=== PATIENT | female | born 1985 | race Caucasian/White ===

== ENCOUNTER 2017-01-06 16:41 | Observation (INO) | payer MEDICARE, MEDICAID ==
[2017-01-06] MEDS ORDERED: Ketorolac 60 MG/2 ML SDV IM ONE (17:19)
--- NOTE | 2017-01-06 17:52 | EDM.PDOC ---
ED HPI GENERAL MEDICAL PROBLEM - General Chief Complaint: Lower Extremity Injury/Pain Stated Complaint: RT ANKLE Time Seen by Provider: 01/06/17 16:57 Source of Information: Reports: Patient History Limitations: Reports: No Limitations - History of Present Illness INITIAL COMMENTS - FREE TEXT/NARRATIVE: 31 -year-old white female came to the ed and because of right ankle pain, swelling and pain. Pt stated, she has pain for one week and head a "pup" today, has pain when she applies weight on her right leg. Denies trauma or any other acute medical issues. Onset Date: 12/30/16 Onset Time: 18:00 Duration: Getting Worse Location: Reports: Lower Extremity, Right Quality: Reports: Ache, Burning, Dull, Pressure Severity: Mild Improves with: Reports: Cold Therapy, Immobilization Worsens with: Reports: Movement Associated Symptoms: Reports: No Other Symptoms Right Ankle Pain Score (Numeric/FACES): 7 - Related Data Allergies Allergy/AdvReac Type Severity Reaction Status Date / Time latex Allergy Unknown unknown Verified 01/06/17 16:52 tramadol Allergy Unknown unknown Verified 01/06/17 16:52 sumatriptan [From Imitrex] Allergy Hives Verified 01/06/17 21:10 Home Meds: Home Meds Lactulose 20 gram PO TID 10/21/15 [History] Multivit-Min/Iron Fum/Folic AC [Jxcds-Genehku-[place] Tablet] 1 tab PO DAILY [History] Multivitamin with Minerals [Hair, Skin and Nails] 1 tab PO BIDMEALS 10/21/15 [ History] Citalopram Hydrobromide [Celexa] 40 mg PO DAILY 01/06/17 [History] Indomethacin 50 mg PO TID PRN #15 capsule 01/07/17 [Rx] Potassium Chloride [Klor-Con M20] 20 meq PO TID #30 tab.er 01/07/17 [Rx] Past Medical History HEENT History: Reports: Allergic Rhinitis Cardiovascular History: Reports: Other (See Below) Other Cardiovascular History: TACHY ON ASSESSMENT AT ED AT 110 Gastrointestinal History: Reports: Cirrhosis, Jaundice Other Gastrointestinal History: Alcoholic liver disease. Low potassium. 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: Psychiatric History: Reports: Addiction, Depression, Eating Disorders, Other ( See Below) Other Psychiatric History: Alcohol abuse Dermatologic History: Reports: Eczema - Infectious Disease History Infectious Disease History: Reports: Chicken Pox - Past Surgical History Female Surgical History: Reports: Section Social & Family History - Family History Family Medical History: Noncontributory - Tobacco Use Smoking Status *Q: Never Smoker Years of Tobacco use: 16 Packs/Tins Daily: 0.2 Used Tobacco, but Quit: Yes Month Tobacco Last Used: DEC, 2015 Second Hand Smoke Exposure: No - Caffeine Use Caffeine Use: Reports: Coffee, Tea - Alcohol Use Days Per Week of Alcohol Use: 7 Number of Drinks Per Day: 8 Total Drinks Per Week: 56 - Recreational Drug Use Recreational Drug Use: No - Living Situation & Occupation Living situation: Reports: Other Review of Systems - Review of Systems Review Of Systems: See Below Constitutional: Reports: No Symptoms Eyes: Reports: No Symptoms Ears: Reports: No Symptoms Nose: Reports: No Symptoms Mouth/Throat: Reports: No Symptoms Respiratory: Reports: No Symptoms Cardiovascular: Reports: No Symptoms GI/Abdominal: Reports: No Symptoms Genitourinary: Reports: No Symptoms Musculoskeletal: Reports: Joint Swelling (r ankle) Skin: Reports: Rash (r ankle) Neurological: Reports: No Symptoms Psychiatric: Reports: No Symptoms ED EXAM, GENERAL - Physical Exam Exam: See Below Exam Limited By: No Limitations General Appearance: Alert, WD/WN, Mild Distress Eye Exam: Bilateral Eye: Normal Inspection Ears: Normal External Exam Ear Exam: Bilateral Ear: Auricle Normal Nose: Normal Inspection Throat/Mouth: Normal Inspection Head: Atraumatic, Normocephalic Neck: Normal Inspection, Supple, Non-Tender Respiratory/Chest: No Respiratory Distress, Lungs Clear Cardiovascular: Normal Peripheral Pulses, Regular Rate, Rhythm Peripheral Pulses: 1+: Femoral (L), Femoral (R) GI/Abdominal: Normal Bowel Sounds, Soft, Non-Tender (Female) Exam: Deferred Rectal (Female) Exam: Deferred Back Exam: Normal Inspection, Full Range of Motion Extremities: Joint Swelling (r ankle), Increased Warmth (r med ankle), Redness ( r ankle, medial aspect) Neurological: Alert, Oriented, CN II-XII Intact Psychiatric: Normal Affect, Normal Mood Skin Exam: Warm, Dry, Normal Color, Erythema (r ankle medial aspect) Lymphatic: No Adenopathy EKG INTERPRETATION EKG Date: 01/06/17 Time: 18:45 Rhythm: NSR Rate (beats/min): 83 [place]: normal P-wave: present QRS: normal ST-T: normal QT: normal Comparison: NA - no prior EKG Course - Vital Signs Text/Narrative:: 31 -year-old white female came to the ed and because of right ankle pain, swelling and pain. Pt stated, she has pain for one week and head a "pup" today, has pain when she applies weight on her right leg. Denies trauma or any other acute medical issues. PE: WNWD w F NAD, r ankle warm and swollen with limited ROM. Labs: Potasium 2.2 Lactic acid and WBC nl Mg level is pending Impression: Hypokalemia, Cellulitis r med ankle. Hypomagnesia Tx: Rocephin, Toradol, K Dur liquid, vicodin Plan: Admit to M/S tele Last Recorded V/S: Last Vital Signs Temp 36.6 C 01/07/17 08:00 Pulse 70 01/07/17 08:00 Resp 20 01/07/17 08:00 BP 87/53 L 01/07/17 08:00 Pulse Ox 97 01/07/17 08:00 - Orders/Labs/Meds Orders: Active Orders 24 hr Category Date Time Status Ankle Min 3V Rt [CR] Stat Exams 01/06/17 17:17 Taken CULTURE BLOOD [BC] Urgent Lab 01/06/17 18:00 Received CULTURE BLOOD [BC] Urgent Lab 01/06/17 18:00 Received Blood Culture x2 Reflex Set [OM.PC] Urgent Oth 01/06/17 17:44 Ordered Ice Bag [Ice Therapy] [OM.PC] Routine Oth 01/06/17 17:19 Ordered EKG 12 Lead [EK] Routine Ther 01/06/17 18:36 Ordered Labs: Laboratory Tests 01/06/17 01/06/17 01/06/17 Range/Units 17:55 17:55 17:55 WBC 7.3 (4.5-12.0) X10-3/uL RBC 4.60 (3.23-5.20) x10(6)uL Hgb 12.8 (11.5-15.5) g/dL Hct 38.5 (30.0-51.3) % MCV 83.8 (80-96) fL MCH 27.8 (27.7-33.6) pg MCHC 33.1 (32.2-35.4) g/dL RDW 14.2 (11.5-15.5) % Plt Count 157 (125-369) X10(3)uL MPV 9.3 (7.4-10.4) fL Neut % (Auto) 59.2 (46-82) % Lymph % (Auto) 33.3 (13-37) % [place] % (Auto) 5.6 (4-12) % Eos % (Auto) 1 (1.0-5.0) % Baso % (Auto) 1 (0-2) % Neut # (Auto) 4.3 (1.6-8.3) # Lymph # (Auto) 2.4 (0.6-5.0) # [place] # (Auto) 0.4 (0.0-1.3) # Eos # (Auto) 0.1 (0.0-0.8) # Baso # (Auto) 0.1 (0.0-0.2) # Sodium 131 L (135-145) mmol/L Potassium 2.2 L* (3.5-5.3) mmol/L Chloride 90 L D (100-110) mmol/L Carbon Dioxide 30 H (23-29) mmol/L BUN 15 (5-20) mg/dL Creatinine 0.6 (0.6-1.3) mg/dL Est Cr Clr Drug Dosing 108.43 mL/min Estimated GFR (MDRD) > 60 (>60) BUN/Creatinine Ratio 25.0 H (9-20) Glucose 102 (80-116) mg/dL Lactic Acid 1.2 (0.5-2.2) mmol/L Calcium 9.4 (8.6-10.2) mg/dL Magnesium (1.8-2.5) mg/dL 01/06/17 Range/Units 17:55 WBC (4.5-12.0) X10-3/uL RBC (3.23-5.20) x10(6)uL Hgb (11.5-15.5) g/dL Hct (30.0-51.3) % MCV (80-96) fL MCH (27.7-33.6) pg MCHC (32.2-35.4) g/dL RDW (11.5-15.5) % Plt Count (125-369) X10(3)uL MPV (7.4-10.4) fL Neut % (Auto) (46-82) % Lymph % (Auto) (13-37) % [place] % (Auto) (4-12) % Eos % (Auto) (1.0-5.0) % Baso % (Auto) (0-2) % Neut # (Auto) (1.6-8.3) # Lymph # (Auto) (0.6-5.0) # [place] # (Auto) (0.0-1.3) # Eos # (Auto) (0.0-0.8) # Baso # (Auto) (0.0-0.2) # Sodium (135-145) mmol/L Potassium (3.5-5.3) mmol/L Chloride (100-110) mmol/L Carbon Dioxide (23-29) mmol/L BUN (5-20) mg/dL Creatinine (0.6-1.3) mg/dL Est Cr Clr Drug Dosing mL/min Estimated GFR (MDRD) (>60) BUN/Creatinine Ratio (9-20) Glucose (80-116) mg/dL Lactic Acid (0.5-2.2) mmol/L Calcium (8.6-10.2) mg/dL Magnesium 1.6 L (1.8-2.5) mg/dL Meds: Medications Discontinued Medications Generic Name Dose Route Start Last Admin Trade Name Spq PRN Reason Stop Dose Admin Hydrocodone Bitart/Acetaminophen 1 tab 01/06/17 20:02 01/06/17 21:19 [place] 325-5 Mg PO 01/06/17 20:03 1 tab ONETIME STA Administration Ceftriaxone Sodium 1,000 mg/ 50 mls @ 100 mls/hr 01/06/17 18:54 01/06/17 20: 19 Sodium Chloride IV 01/06/17 19:23 100 mls/hr ONETIME ONE Administration Sodium Chloride 250 mls @ 100 mls/hr 01/06/17 20:30 01/07/17 08:16 Normal Saline IV 100 mls/hr ASDIRECTED KENDRICK Administration Magnesium Sulfate 1 gm/ 52 mls @ 100 mls/hr 01/07/17 06:49 01/07/17 08:19 Dextrose/Water IV 01/07/17 07:20 100 mls/hr ONETIME ONE Administration Ketorolac Tromethamine 60 mg 01/06/17 17:19 01/06/17 17:26 Toradol IM 01/06/17 17:20 60 mg ONETIME ONE Administration Ketorolac Tromethamine 30 mg 01/07/17 08:47 01/07/17 09:28 Toradol IVPUSH 01/07/17 08:48 30 mg ONETIME ONE Administration Ondansetron HCl 4 mg 01/06/17 18:42 Zofran IV Q4H PRN Nausea/Vomiting Ondansetron HCl 4 mg 01/07/17 07:32 Zofran IVPUSH Q4H PRN Nausea/Vomiting Pneumococcal Polyvalent Vaccine 0.5 ml 01/06/17 20:49 01/06/17 22:42 Pneumovax 23 IM 01/06/17 20:50 0.5 ml .ONCE ONE Administration Potassium Chloride 40 meq 01/06/17 18:35 01/06/17 18:46 Potassium Chloride Solution PO 01/06/17 18:36 40 meq ONETIME ONE Administration Potassium Chloride 40 meq 01/06/17 23:31 01/06/17 23:38 Potassium Chloride Solution PO 01/06/17 23:32 40 meq ONETIME STA Administration Potassium Chloride 40 meq 01/07/17 03:30 01/07/17 04:41 Potassium Chloride Solution PO 01/07/17 03:31 40 meq ONETIME ONE Administration Potassium Chloride 40 meq 01/07/17 07:03 01/07/17 08:22 Potassium Chloride Solution PO 01/07/17 07:04 40 meq ONETIME ONE Administration Sodium Chloride 10 ml 01/06/17 18:42 01/06/17 20:19 Saline Flush FLUSH 10 ml ASDIRECTED PRN Administration Keep Vein Open Departure - Departure Time of Disposition: 21:00 Disposition: Refer to Observation Condition: fair Clinical Impression: Hypokalemia - Discharge Information - My Orders Last 24 Hours: My Active Orders 01/06/17 17:17 Ankle Min 3V Rt [CR] Stat 01/06/17 17:19 Ice Bag [Ice Therapy] [OM.PC] Routine 01/06/17 17:44 Blood Culture x2 Reflex Set [OM.PC] Urgent 01/06/17 18:00 CULTURE BLOOD [BC] Urgent CULTURE BLOOD [BC] Urgent 01/06/17 18:36 EKG 12 Lead [EK] Routine - Assessment/Plan Last 24 Hours: My Active Orders 01/06/17 17:17 Ankle Min 3V Rt [CR] Stat 01/06/17 17:19 Ice Bag [Ice Therapy] [OM.PC] Routine 01/06/17 17:44 Blood Culture x2 Reflex Set [OM.PC] Urgent 01/06/17 18:00 CULTURE BLOOD [BC] Urgent CULTURE BLOOD [BC] Urgent 01/06/17 18:36 EKG 12 Lead [EK] Routine
[2017-01-06] MEDS ORDERED: Potassium Chloride 10% 20 MEQ/15 ML Soln 15 ML UD Cup PO ONE (18:35)
[2017-01-06] MEDS ORDERED: Sodium Chloride 0.9% 10 ML Syringe FLUSH PRN (18:42)
[2017-01-06] MEDS ORDERED: Ondansetron 4 MG/2 ML SDV IV PRN (18:42)
[2017-01-06] MEDS ORDERED: cefTRIAXone 1,000 MG in Sodium Chloride 0.9% 50 ML IV ONE (18:54)
[2017-01-06] MEDS ORDERED: Acetaminophen/HYDROcodone 325-5 MG Tab PO STA (20:02)
[2017-01-06] MEDS ORDERED: Pneumococcal Polyvalent-23 Vaccine 0.5 ML SDV IM ONE (20:49)
[2017-01-06] MEDS: Sodium Chloride 0.9% 250 ML IV SCH (21:08)
[2017-01-06] MEDS ORDERED: Potassium Chloride 10% 20 MEQ/15 ML Soln 15 ML UD Cup PO STA (23:31)
[2017-01-07] MEDS ORDERED: Potassium Chloride 10% 20 MEQ/15 ML Soln 15 ML UD Cup PO ONE ×2 (03:30→07:03)
[2017-01-07] MEDS ORDERED: Ondansetron 4 MG/2 ML SDV IVPUSH PRN (07:32)
[2017-01-07 08:04] VITALS: BP 87/53
[2017-01-07] MEDS: Sodium Chloride 0.9% 250 ML IV SCH (08:16)
[2017-01-07] MEDS ORDERED: Ketorolac 30 MG/ML SDV IVPUSH ONE (08:47)
--- NOTE | 2017-01-07 09:01 | PCM.HP ---
H&P History of Present Illness - General Date of Service: 01/07/17 Admit Problem/Dx: Admission Diagnosis/Problem Admission Diagnosis/Problem Hypokalemia Source of Information: Patient History Limitations: Reports: No Limitations - History of Present Illness Initial Comments - Free Text/Narative: 31-year-old was brought in because of ankle pain right side. Sudden onset popping and swelling,minimal trauma. No fever worse with weight bearing. Upon admission appetite was found to have K of 2.2 .Hypokalemia apparently has been a chronic problem for the last year. She has also a history of alcohol abuse but that's been in remission with no alcohol use in the last 6 months. She is admitted for IV and oral potassium replacement and pain control of the right ankle. This morning she would like to go home. Right Ankle Pain Score (Numeric/FACES): 7 - Related Data Allergies/Adverse Reactions: Allergies Allergy/AdvReac Type Severity Reaction Status Date / Time latex Allergy Unknown unknown Verified 01/06/17 16:52 tramadol Allergy Unknown unknown Verified 01/06/17 16:52 sumatriptan [From Imitrex] Allergy Hives Verified 01/06/17 21:10 Home Medications: Home Meds Lactulose 20 gram PO TID 10/21/15 [History] Multivit-Min/Iron Fum/Folic AC [Jsnmp-Oigjyqq-Rrpjfszf Tablet] 1 tab PO DAILY [History] Multivitamin with Minerals [Hair, Skin and Nails] 1 tab PO BIDMEALS 10/21/15 [ History] Citalopram Hydrobromide [Celexa] 40 mg PO DAILY 01/06/17 [History] Past Medical History HEENT History: Reports: Allergic Rhinitis Cardiovascular History: Reports: Other (See Below) Other Cardiovascular History: TACHY ON ASSESSMENT AT ED AT 110 Respiratory History: Reports: None Gastrointestinal History: Reports: Cirrhosis, Jaundice Other Gastrointestinal History: Alcoholic liver disease. Low potassium. 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: Neurological History: Reports: Migraines, Seizure Psychiatric History: Reports: Addiction, Depression, Eating Disorders, Other ( See Below) Other Psychiatric History: Alcohol abuse Endocrine/Metabolic History: Reports: None Hematologic History: Reports: Anemia, B12 Deficiency Immunologic History: Reports: None Oncologic (Cancer) History: Reports: None Dermatologic History: Reports: Eczema - Infectious Disease History Infectious Disease History: Reports: Chicken Pox - Past Surgical History Female Surgical History: Reports: Section Social & Family History - Family History Family Medical History: Noncontributory - Tobacco Use Smoking Status *Q: Never Smoker Years of Tobacco use: 16 Packs/Tins Daily: 0.2 Used Tobacco, but Quit: Yes Month Tobacco Last Used: DEC, 2015 Tobacco Use Comment: stopped smoking 2 weeks ago Second Hand Smoke Exposure: No - Caffeine Use Caffeine Use: Reports: Coffee, Tea - Alcohol Use Days Per Week of Alcohol Use: 7 Number of Drinks Per Day: 8 Total Drinks Per Week: 56 - Recreational Drug Use Recreational Drug Use: No - Living Situation & Occupation Living situation: Reports: Other H&P Review of Systems - Review of Systems: Review Of Systems: ROS reveals no pertinent complaints other than HPI. Exam - Exam Exam: See Below - Vital Signs Vital Signs: Last Vital Signs Temp 97.9 F 01/07/17 08:00 Pulse 70 01/07/17 08:00 Resp 20 01/07/17 08:00 BP 87/53 L 01/07/17 08:00 Pulse Ox 97 01/07/17 08:00 Weight: 52.662 kg - Exam General: Alert, Oriented, 4 HEENT: PERRLA, Hearing Intact, Mucosa Moist & [place], Nares Patent, Normal Nasal Septum, Posterior Pharynx Clear, Conjunctiva Clear, EOMI, EACs Clear, TMs Clear Neck: Supple, Trachea Midline, 2 Lungs: Clear to Auscultation, Normal Respiratory Effort Cardiovascular: Regular Rate, Regular Rhythm Abdomen: Normal Bowel Sounds, Soft (Female) Exam: Deferred Rectal (Female) Exam: Deferred Back Exam: Normal Inspection, Full Range of Motion, NT Extremities: Normal Pulses, Increased Warmth, Other (rt ankle tender,decreased ROM). No: Normal Inspection, Clubbing Skin: Warm, Dry, Intact Neurological: Cranial Nerves Intact, Reflexes Equal Bilateral Neuro Extensive - Mental Status: Alert, Oriented x3, Normal Mood/Affect, Normal Cognition Neuro Extensive - Motor, Sensory, Reflexes: CN II-XII Intact, Normal Gait, Normal Reflexes Psychiatric: Alert, Normal Affect, Normal Mood - Patient Data Lab Results last 24 hrs: Laboratory Results - last 24 hr 01/06/17 01/07/17 Range/Units 22:40 06:30 Sodium 133 L 141 (135-145) mmol/L Potassium 2.4 L* 2.9 L (3.5-5.3) mmol/L Chloride 94 L 99 L D (100-110) mmol/L Carbon Dioxide 34 H 35 H (23-29) mmol/L BUN 15 20 (5-20) mg/dL Creatinine 0.7 0.6 (0.6-1.3) mg/dL Est Cr Clr Drug Dosing 97.21 113.41 mL/min Estimated GFR (MDRD) > 60 > 60 (>60) BUN/Creatinine Ratio 21.4 H 33.3 H (9-20) Glucose 127 H 101 (80-116) mg/dL Calcium 9.2 9.1 (8.6-10.2) mg/dL Result Diagrams: 01/06/17 17:55 01/07/17 06:30 Imaging Impressions last 24 hrs: XC ray reviewed-negative *Q Meaningful Use (ADM) - VTE *Q VTE Criteria *Q: - Stroke *Q Stroke Criteria *Q: - AMI *Q AMI Criteria *Q: - Problem List (1) Ankle pain, right SNOMED Code(s): 791428936, 086667636 ICD Code: M25.571 - PAIN IN RIGHT ANKLE AND JOINTS OF RIGHT FOOT Status: Acute Current Visit: Yes Qualifiers: Chronicity: acute Qualified Code(s): M25.571 - Pain in right ankle and joints of right foot (2) Hypokalemia SNOMED Code(s): 61736425 ICD Code: E87.6 - HYPOKALEMIA Status: Chronic Priority: High Current Visit: No Onset Date: 12/11/14 Problem Details: replace IV and orally Problem List Initiated/Reviewed/Updated: Yes Orders Last 24hrs: Active Orders 24 hr Category Date Time Status Cooling Warming Measures [RC] ASDIRECTED Care 01/06/17 20:02 Active Telemetry Monitoring [Cardiac Monitoring] [RC] 08,16,00 Care 01/06/17 19:50 Active URIC ACID [CHEM] Routine Lab 01/07/17 08:46 Ordered Ketorolac [Toradol] Med 01/07/17 08:47 Once 30 mg IVPUSH ONETIME ONE Ondansetron [Zofran] Med 01/07/17 07:32 Active 4 mg IVPUSH Q4H PRN Sodium Chloride 0.9% [Normal Saline] 250 ml Med 01/06/17 20:30 Active IV ASDIRECTED Ice Therapy [OM.PC] Routine Oth 01/06/17 20:02 Ordered Medication Orders Sodium Chloride (Normal Saline) 250 mls @ 100 mls/hr IV ASDIRECTED KENDRICK Last Admin: 01/07/17 08:16 Dose: 100 mls/hr Admin: 01/06/17 21:08 Dose: 100 mls/hr Ketorolac Tromethamine (Toradol) 30 mg IVPUSH ONETIME ONE Stop: 01/07/17 08:48 Ondansetron HCl (Zofran) 4 mg IVPUSH Q4H PRN PRN Reason: Nausea/Vomiting Sodium Chloride (Saline Flush) 10 ml FLUSH ASDIRECTED PRN PRN Reason: Keep Vein Open Last Admin: 01/06/17 20:19 Dose: 10 ml Assessment/Plan Comment:: K is up to 2.9 this morning. My plan is to send her home on potassium oral replacement. Also take indomethacin 50 mg 3 times a day for pain of the right ankle. I did order uric acid level ,to rule out Gout. I see no evidence clinically of cellulitis.
--- NOTE | 2017-01-09 12:17 | CR ---
INDICATION: Trauma. RIGHT ANKLE: Three views of the right ankle revealed no evidence of an acute fracture, dislocation, or other acute bone or joint abnormality. A very tiny plantar calcaneal spur is noted. The study was otherwise unremarkable. IMPRESSION: No acute fracture or dislocation. MTDD
== END 2017-01-07 10:25 | disposition home or self-care (01) ==
LOC: FB.ED 16:41 → FB.MS 18:42
PROVIDERS: ADMIT Emergency Medicine; ATTEND Family Medicine
DX: M25.571 Pain in right ankle and joints of right foot (principal); E87.6 Hypokalemia; Z88.8 Allergy status to other drugs, medicaments and biological substances; Z91.040 Latex allergy status; Z79.899 Other long term (current) drug therapy; F32.9 Major depressive disorder, single episode, unspecified; Z98.890 Other specified postprocedural states; X58.XXXA Exposure to other specified factors, initial encounter; Z23 Encounter for immunization
CPT/HCPCS: 36415; 73610; 80048; 83605; 83735; 84550; 85025; 87040; 93005; 96365; 96372; 96375; 99219; 99284; A9270; G0009; J0696; J1885; J3475; J7050; 90732; G0378; J7060

== ENCOUNTER 2017-05-13 10:40 | Emergency (ER) | payer MEDICARE, MEDICAID ==
[2017-05-13] MEDS ORDERED: Sodium Chloride 0.9% 1,000 ML IV SCH (11:00)
[2017-05-13] MEDS ORDERED: Metoclopramide 10 MG/2 ML SDV IVPUSH ONE (11:00)
[2017-05-13] MEDS ORDERED: prednisoLONE Solution 15 MG/5 ML ML 240 ML Bottle PO SCH (12:15)
[2017-05-13] MEDS ORDERED: Potassium Chloride 10% 20 MEQ/15 ML Soln 15 ML UD Cup PO ONE ×2 (12:38)
[2017-05-13] MEDS ORDERED: prednisoLONE Solution 15 MG/5 ML ML 240 ML Bottle PO ONE (13:24)
[2017-05-13 13:45] VITALS: BP 93/59
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
== END 2017-05-13 13:50 | disposition home or self-care (01) ==
LOC: FB.ED 10:40
DX: E87.6 Hypokalemia (principal); R07.2 Precordial pain; R61 Generalized hyperhidrosis; R53.1 Weakness; F17.200 Nicotine dependence, unspecified, uncomplicated
CPT/HCPCS: 36415; 80053; 80305; 81001; 81025; 82140; 83735; 84484; 85025; 86140; 93005; 96361; 96374; 99285; A9270; G0480; J2765; J7040; 99283

== ENCOUNTER 2023-08-01 19:32 | Emergency (ER) | payer MEDICAID, MEDICARE ==
[2023-08-01] MEDS ORDERED: Sodium Chloride 0.9% 10 ML Syringe FLUSH PRN (19:49)
[2023-08-01] MEDS ORDERED: Sodium Chloride 0.9% 1,000 ML IV SCH ×3 (20:15→21:45)
[2023-08-01 20:38] LABS: BASOPHILS ABSOLUTE AUTO 0.1 x10-3/uL (0.0-0.1); BASOPHILS PERCENT AUTO 0.8 % (0.2-1.5); BLOOD UREA NITROGEN,BUN 11 mg/dL (7-18); CALCIUM 8.7 mg/dL (8.6-10.2); CARBON DIOXIDE,CO2 25 mmol/L (21-32); CHLORIDE,CL 102 mmol/L (100-110); EOSINOPHILS PERCENT AUTO 0.2 % (0.6-8.1); EST CRCL DRUG DOSING (CG) 61.26 mL/min; ESTIMATED GFR 75 mL/min (>60); GLUCOSE RANDOM 112 mg/dL (80-116); HEMOGLOBIN 9.4 g/dL (11.4-15.5); LYMPHOCYTES ABSOLUTE AUTO 2.1 x10-3/uL (1.0-4.4); LYMPHOCYTES PERCENT AUTO 33.7 % (18.4-52.1); MEAN CORPUSCULAR HEMOGLOBIN 17.6 pg (23.9-33.9); MEAN CORPUSCULAR HGB CONC 29.3 g/dL (31.9-34.8); MEAN CORPUSCULAR VOLUME 60.2 fL (76.7-100.5); MEAN PLATELET VOLUME 8.5 fL (7.1-12.4); MONOCYTES ABSOLUTE AUTO 0.7 x10-3/uL (0.3-1.0); MONOCYTES PERCENT AUTO 11.9 % (4.4-15.7); NEUTROPHILS ABSOLUTE AUTO 3.3 x10-3/uL (1.5-6.3); NEUTROPHILS PERCENT AUTO 53.4 % (30.8-76.2); PLATELET COUNT,PLT 331 x10(3)uL (151-488); POTASSIUM,K 4.1 mmol/L (3.5-5.3); RED BLOOD CELL COUNT 5.31 x10(6)uL (3.60-5.20); RED CELL DISTRIBUTION WIDTH 19.3 % (12.3-16.5); SODIUM,NA 135 mmol/L (135-145); WHITE BLOOD CELL COUNT,WBC 6.1 x10-3/uL (3.0-10.3)
[2023-08-01 20:44] LABS: A/G RATIO 0.9; ALANINE AMINOTRANSFERASE,ALT 21 U/L (12-36); ALBUMIN 3.3 g/dL (3.5-5.2); ALKALINE PHOSPHATASE 106 IU/L (56-112); ASPARTATE AMNIOTRANSFERASE,AST 12 IU/L (5-25); BILIRUBIN TOTAL 0.3 mg/dL (0.1-1.3)
[2023-08-01 20:45] LABS: INR 1.02 (1.00-1.24); PROTHROMBIN TIME 10.5 sec (9.0-11.1); PTT,PARTIAL THROMBOPLSTIN TIME 27.6 SECONDS (24.4-33.2)
[2023-08-01 20:47] LABS: LACTIC ACID 1.9 mmol/L (0.4-2.0)
[2023-08-01] MEDS ORDERED: Metoprolol Tartrate 5 MG/5 ML SDV IVPUSH ONE (21:06)
[2023-08-01] MEDS ORDERED: Metoprolol Tartrate 50 MG Tab PO ONE (21:08)
[2023-08-01 21:13] LABS: INFLUENZA A NAA NEGATIVE (NEGATIVE); INFLUENZA B NAA NEGATIVE (NEGATIVE)
[2023-08-01 21:15] LABS: CORONAVIRUS COVID-19 NAA POSITIVE (NEGATIVE)
[2023-08-01] MEDS ORDERED: Dexamethasone 4 MG/ML 5 ML MDV IVPUSH ONE (21:16)
[2023-08-01] MEDS ORDERED: Ondansetron 4 MG/2 ML SDV IVPUSH ONE (21:25)
[2023-08-01] MEDS ORDERED: Ondansetron 4 MG/2 ML SDV IVPUSH PRN (21:39)
[2023-08-01] MEDS ORDERED: Pantoprazole 40 MG Vial IVPUSH ONE (21:39)
[2023-08-01 23:23] LABS: AMMONIA, PLASMA <9
[2023-08-02 04:01] LABS: AMPHETAMINES SCREEN, URINE POSITIVE (NEGATIVE); BARBITURATE SCREEN,URINE NEGATIVE (NEGATIVE); BENZODIAZEPINES SCREEN,URINE NEGATIVE (NEGATIVE); METHADONE SCREEN, URINE NEGATIVE (NEGATIVE); METHAMPHETAMINE SCREEN, URINE POSITIVE (NEGATIVE); OXYCODONE SCREEN,URINE NEGATIVE (NEGATIVE); THC SCREEN,URINE POSITIVE (NEGATIVE)
[2023-08-02 04:02] LABS: BUPRENORPHINE SCREEN,URINE NEGATIVE (NEGATIVE)
[2023-08-02 07:01] LABS: BASOPHILS PERCENT AUTO 0.4 % (0.2-1.5); HEMATOCRIT 27.3 % (34.2-48.2); LYMPHOCYTES ABSOLUTE AUTO 0.7 x10-3/uL (1.0-4.4); LYMPHOCYTES PERCENT AUTO 30.6 % (18.4-52.1); MEAN CORPUSCULAR HEMOGLOBIN 17.8 pg (23.9-33.9); MEAN CORPUSCULAR HGB CONC 29.5 g/dL (31.9-34.8); MEAN CORPUSCULAR VOLUME 60.5 fL (76.7-100.5); MEAN PLATELET VOLUME 8.5 fL (7.1-12.4); MONOCYTES ABSOLUTE AUTO 0.1 x10-3/uL (0.3-1.0); MONOCYTES PERCENT AUTO 3.4 % (4.4-15.7); NEUTROPHILS ABSOLUTE AUTO 1.5 x10-3/uL (1.5-6.3); NEUTROPHILS PERCENT AUTO 65.6 % (30.8-76.2); PLATELET COUNT,PLT 258 x10(3)uL (151-488); RED BLOOD CELL COUNT 4.51 x10(6)uL (3.60-5.20); RED CELL DISTRIBUTION WIDTH 19.2 % (12.3-16.5); WHITE BLOOD CELL COUNT,WBC 2.3 x10-3/uL (3.0-10.3)
[2023-08-02 07:02] LABS: BLOOD UREA NITROGEN,BUN 11 mg/dL (7-18); BUN/CREATININE RATIO 15.7 (9-20); CALCIUM 8.3 mg/dL (8.6-10.2); CARBON DIOXIDE,CO2 22 mmol/L (21-32); CHLORIDE,CL 106 mmol/L (100-110); CREATININE 0.7 mg/dL (0.55-1.02); EST CRCL DRUG DOSING (CG) 87.51 mL/min; ESTIMATED GFR 115 mL/min (>60); GLUCOSE RANDOM 115 mg/dL (80-116); POTASSIUM,K 4.3 mmol/L (3.5-5.3); SODIUM,NA 137 mmol/L (135-145)
[2023-08-02 07:08] LABS: A/G RATIO 0.8; ALANINE AMINOTRANSFERASE,ALT 19 U/L (12-36); ALBUMIN 2.7 g/dL (3.5-5.2); ALKALINE PHOSPHATASE 88 IU/L (56-112); ASPARTATE AMNIOTRANSFERASE,AST 13 IU/L (5-25); BILIRUBIN TOTAL 0.3 mg/dL (0.1-1.3); PROTEIN TOTAL,TP 5.9 g/dL (6.0-8.0)
[2023-08-02] MEDS ORDERED: Magnesium Sulfate/Water 2 GM in Premix Bag 1 BAG IV ONE (07:09)
[2023-08-02 11:00] VITALS: BP 98/63; PULSE 80
== END 2023-08-02 09:55 | disposition home or self-care (01) ==
LOC: FB.ED 19:32
DX: U07.1 COVID-19 (principal); R00.2 Palpitations; K21.9 Gastro-esophageal reflux disease without esophagitis; K70.31 Alcoholic cirrhosis of liver with ascites; F10.10 Alcohol abuse, uncomplicated; D64.9 Anemia, unspecified; F17.210 Nicotine dependence, cigarettes, uncomplicated; Z88.5 Allergy status to narcotic agent; Z88.8 Allergy status to other drugs, medicaments and biological substances; Z91.040 Latex allergy status; Z79.899 Other long term (current) drug therapy; Z20.822 Contact with and (suspected) exposure to COVID-19
CPT/HCPCS: 0240U; 36415; 71045; 80053; 80307; 82140; 83605; 83735; 83880; 84443; 84484; 85025; 85610; 85730; 87651-QW; 93005; 96361; 96365; 96366; 96375; 99285-25; C9113; J1100; J2405; J3475; J3490; J7030

== ENCOUNTER 2024-02-04 15:11 | Emergency (ER) | payer MEDICAID ==
[2024-02-04 16:11] LABS: BASOPHILS ABSOLUTE AUTO 0.1 x10-3/uL (0.0-0.1); BASOPHILS PERCENT AUTO 0.9 % (0.2-1.5); EOSINOPHILS ABSOLUTE AUTO 0.1 x10-3/uL (0.0-0.8); EOSINOPHILS PERCENT AUTO 1.1 % (0.6-8.1); HEMATOCRIT 30.2 % (34.2-48.2); HEMOGLOBIN 8.6 g/dL (11.4-15.5); LYMPHOCYTES ABSOLUTE AUTO 1.8 x10-3/uL (1.0-4.4); LYMPHOCYTES PERCENT AUTO 22.1 % (18.4-52.1); MEAN CORPUSCULAR HEMOGLOBIN 17.1 pg (23.9-33.9); MEAN CORPUSCULAR HGB CONC 28.4 g/dL (31.9-34.8); MEAN CORPUSCULAR VOLUME 60.2 fL (76.7-100.5); MEAN PLATELET VOLUME 8.4 fL (7.1-12.4); MONOCYTES ABSOLUTE AUTO 0.5 x10-3/uL (0.3-1.0); MONOCYTES PERCENT AUTO 6.6 % (4.4-15.7); NEUTROPHILS ABSOLUTE AUTO 5.6 x10-3/uL (1.5-6.3); NEUTROPHILS PERCENT AUTO 69.3 % (30.8-76.2); PLATELET COUNT,PLT 330 x10(3)uL (151-488); RED CELL DISTRIBUTION WIDTH 19.1 % (12.3-16.5); WHITE BLOOD CELL COUNT,WBC 8.1 x10-3/uL (3.0-10.3)
[2024-02-04 16:16] LABS: BLOOD UREA NITROGEN,BUN 9 mg/dL (7-18); BUN/CREATININE RATIO 11.3 (9-20); CALCIUM 8.9 mg/dL (8.6-10.2); CARBON DIOXIDE,CO2 27 mmol/L (21-32); CHLORIDE,CL 104 mmol/L (100-110); CREATININE 0.8 mg/dL (0.55-1.02); EST CRCL DRUG DOSING (CG) 79.65 mL/min; ESTIMATED GFR 97 mL/min (>60); GLUCOSE RANDOM 95 mg/dL (80-116); POTASSIUM,K 3.9 mmol/L (3.5-5.3); SODIUM,NA 139 mmol/L (135-145)
[2024-02-04 16:17] LABS: RED BLOOD CELL COUNT 5.02 x10(6)uL (3.60-5.20)
[2024-02-04 16:21] LABS: A/G RATIO 0.8; ALANINE AMINOTRANSFERASE,ALT 22 U/L (12-36); ALBUMIN 3.2 g/dL (3.5-5.2); ALKALINE PHOSPHATASE 121 IU/L (56-112); ASPARTATE AMNIOTRANSFERASE,AST 15 IU/L (5-25); BILIRUBIN TOTAL 0.5 mg/dL (0.1-1.3)
[2024-02-04 16:26] LABS: ETHANOL BLOOD MEDICAL < 0.03 % (<0.03)
[2024-02-04 17:08] LABS: BILIRUBIN,URINE NEGATIVE (NEGATIVE); GLUCOSE,URINE NORMAL (NORMAL); KETONES,URINE NEGATIVE (NEGATIVE); LEUKOCYTE ESTERASE,URINE NEGATIVE (NEGATIVE); NITRITE,URINE NEGATIVE (NEGATIVE); OCCULT BLOOD,URINE MODERATE (NEGATIVE); PROTEIN,URINE NEGATIVE (NEGATIVE); UROBILINOGEN,URINE NORMAL (NEGATIVE)
[2024-02-04 17:12] LABS: APPEARANCE,URINE CLEAR (CLEAR); BACTERIA,URINE MODERATE (NS); COLOR,URINE YELLOW (YELLOW); SQUAMOUS EPITHELIAL CELLS,UR FEW (NS,R,O); WBC,URINE 0-5 (0-5)
[2024-02-04 17:14] LABS: METHAMPHETAMINE SCREEN, URINE POSITIVE (NEGATIVE); THC SCREEN,URINE POSITIVE (NEGATIVE)
[2024-02-04 17:15] LABS: AMPHETAMINES SCREEN, URINE POSITIVE (NEGATIVE); BARBITURATE SCREEN,URINE NEGATIVE (NEGATIVE); BENZODIAZEPINES SCREEN,URINE NEGATIVE (NEGATIVE); BUPRENORPHINE SCREEN,URINE NEGATIVE (NEGATIVE); METHADONE SCREEN, URINE NEGATIVE (NEGATIVE); OXYCODONE SCREEN,URINE NEGATIVE (NEGATIVE)
[2024-02-04] MEDS: cefTRIAXone 1 GM Vial IM ONE (17:37)
[2024-02-04 18:07] VITALS: BP 121/78; PULSE 101
== END 2024-02-04 18:00 | disposition home or self-care (01) ==
LOC: FB.ED 15:11
DX: L03.115 Cellulitis of right lower limb (principal); D50.9 Iron deficiency anemia, unspecified; F12.10 Cannabis abuse, uncomplicated; F15.10 Other stimulant abuse, uncomplicated; Z91.040 Latex allergy status; Z88.8 Allergy status to other drugs, medicaments and biological substances; Z88.5 Allergy status to narcotic agent
CPT/HCPCS: 36415; 73610-RT; 80053; 80307; 81001; 83605; 84550; 85025; 85379; 86140; 96372; 99283; 99284; J0696